=== PATIENT | male | born 1995 | race Caucasian/White ===

== ENCOUNTER 2016-09-12 11:45 | Emergency (ER) | payer OTHER ==
--- NOTE | 2016-09-12 13:00 | RAD ---
HISTORY: Abdominal trauma, worsening pain COMPARISONS: None TECHNIQUE: Multiple transverse and longitudinal ultrasound images were obtained of the abdomen using grayscale, color Doppler, and spectral Doppler imaging. FINDINGS: LIVER: The liver is normal in shape, size, contour, and echogenicity. There are no focal parenchymal masses. There is normal hepatopedal flow of the portal vein on Doppler imaging. BILIARY TREE: There is no intrahepatic or extrahepatic biliary dilatation. The common duct measures 0.3 cm. GALLBLADDER: The gallbladder is well-visualized. There is no cholelithiasis, gallbladder wall thickening, pericholecystic fluid, or sonographic Kuhn sign. PANCREAS: The pancreas is obscured by overlying bowel gas. SPLEEN: The spleen is normal in shape, size, contour, and echotexture. The spleen measures 10.4 x 3.2 x 4.2 cm. RIGHT KIDNEY: The right kidney is normal in shape, size, contour, and echogenicity. There is no hydronephrosis or nephrolithiasis. The right kidney measures 10.8 x 3.6 x 5.7 cm. LEFT KIDNEY: The left kidney is normal in shape, size, contour, and echogenicity. There is no hydronephrosis or nephrolithiasis. The left kidney measures 10.8 x 5.2 x 5.1 cm. AORTA AND IVC: The aorta and IVC are unremarkable. FLUID: There are no pleural effusions. There is no free fluid within the hepatorenal recess. OTHER FINDINGS: None. IMPRESSION: NO ACUTE SONOGRAPHIC PATHOLOGY OF THE VISUALIZED PORTION OF THE ABDOMEN.
[2016-09-12 15:53] LABS: Hematocrit 45 % (42-52); Hemoglobin 15.3 g/dl (14.0-18.0); Mean Corpuscular HGB Conc 34 g/dl (31-36); Mean Corpuscular Hemoglobin 29 pg (27-31); Mean Corpuscular Volume 85 fL (80-94); Mean Platelet Volume 9 um3 (7.4-10.4); Red Blood Count 5.23 10^6/ul (4.0-5.4); Red Cell Distribution Width 13 % (10.5-15); White Blood Count 8.6 10^3/ul (3.5-10.8)
[2016-09-12 16:19] LABS: Calcium 9.8 mg/dL (8.6-10.3); EGFR Non-African American 85.5 (>60); Globulin 2.9 g/dL (2-4); Total Bilirubin 0.8 mg/dL (0.2-1.0); Total Protein 7.9 g/dL (6.4-8.9)
[2016-09-12] MEDS ORDERED: Iohexol 300* (CONTRAST) 10 ML SDV IV ONE (16:30)
--- NOTE | 2016-09-12 16:52 | ED ---
Abdominal Pain/Male - HPI Summary HPI Summary: Pt here w/ 1 week h/o LUQ ab pain s/p blunt trauma with a pole vaulting pole. Monday was practiving and pole slipped - struck him in the ab. He reports this has happened before and he didn't think anything of it however has had progressively worse pain since. Tried to compete 4 days later (took advil) but after landing 2 jumps, he withdrew from competition as pain was too severe. He' s been following with his AT at where he attends college. Came today as there 's concern something more serious could be going on inside. Denies N/V/D - eating well w/o pain or difficulty. Urinating well also. Pain is worse in the morning when he wakes up and tries to take deep breath, stretch his ab etc. No trouble breathing or rib pain. - History of Current Complaint Chief Complaint: EDAbdPain Stated Complaint: ABD PAIN / SENT FROM [facility] Time Seen by Provider: 09/12/16 13:21 Hx Obtained From: Patient Pain Intensity: 5 PMH/Surg Hx/FS Hx/Imm Hx Previously Healthy: Yes Endocrine/Hematology History: Denies: Hx Anticoagulant Therapy, Hx Blood Disorders, Hx Diabetes, Hx Unexplained Bleeding Cardiovascular History: Denies: Hx Hypertension History: Denies: Hx Renal Disease Infectious Disease History: Yes Infectious Disease History: Denies: Traveled Outside the [place] in Last 30 Days - Family History Known Family History: Positive: None - Social History Occupation: Student Lives: With Family - roommate Alcohol Use: None Hx Substance Use: No Substance Use Type: Reports: None Hx Tobacco Use: No Smoking Status (MU): Never Smoked Tobacco Review of Systems Constitutional: Negative Negative: Chest Pain Negative: Shortness Of Breath, Cough Gastrointestinal: Other - see HPI Positive: no symptoms reported Musculoskeletal: Other Negative: Bruising, Other - redness over affected area Neurological: Negative Psychological: Normal All Other Systems Reviewed And Are Negative: Yes Physical Exam Triage Information Reviewed: Yes Vital Signs On Initial Exam: Initial Vitals Temp Pulse Resp BP Pulse Ox 98.6 F 73 17 152/73 100 09/12/16 11:55 09/12/16 11:55 09/12/16 11:55 09/12/16 11:55 09/12/16 11:55 Vital Signs Reviewed: Yes Appearance: Positive: Well-Appearing, No Pain Distress, Well-Nourished Skin: Positive: Warm, Dry - no erythema, no ecchymosis over LUQ (area of injury) Head/Face: Positive: Normal Head/Face Inspection Eyes: Positive: Normal, EOMI, Conjunctiva Clear - anicteric ENT: Positive: Hearing grossly normal, Pharynx normal - mucosa moist Neck: Positive: Supple, Nontender Respiratory/Lung Sounds: Positive: Clear to Auscultation, Breath Sounds Present , Other - breathing well - speaking full sentences w/o difficulty - appears relaxed. Negative: Rales, Rhonchi, Subcutaneous Emphysema, Stridor, Tracheal Deviation, Wheezes Cardiovascular: Positive: Normal, RRR, S1, S2 Abdomen Description: Positive: Soft - LUQ w/ mild TTP - no rebounding. Negative : No Organomegaly, CVA Tenderness (R), CVA Tenderness (L), Distended, Hernia @, Pulsatile Mass, Splenomegaly Bowel Sounds: Positive: Present Musculoskeletal: Positive: Strength/ROM Intact - pt appears to have discomfort with sitting upright from lying supine Neurological: Positive: Normal, Sensory/Motor Intact, Alert, Oriented to Person Place, Time, CN Intact II-III Psychiatric: Positive: Normal Diagnostics - Vital Signs Vital Signs Temp Pulse Resp BP Pulse Ox 09/12/16 15:00 58 100 09/12/16 14:55 67 100 09/12/16 13:14 98.6 F 62 16 131/75 100 09/12/16 11:55 98.6 F 73 17 152/73 100 - Laboratory Lab Results: Lab Results 09/12/16 09/12/16 09/12/16 Range/Units 15:35 15:35 15:35 WBC 8.6 (3.5-10.8) 10^3/ul RBC 5.23 (4.0-5.4) 10^6/ul Hgb 15.3 (14.0-18.0) g/dl Hct 45 (42-52) % MCV 85 (80-94) fL MCH 29 (27-31) pg MCHC 34 (31-36) g/dl RDW 13 (10.5-15) % Plt Count 287 (150-450) 10^3/ul MPV 9 (7.4-10.4) um3 Neut % (Auto) 63.4 (38-83) % Lymph % (Auto) 29.3 (25-47) % [place] % (Auto) 5.5 (1-9) % Eos % (Auto) 1.0 (0-6) % Baso % (Auto) 0.8 (0-2) % Absolute Neuts (auto) 5.5 (1.5-7.7) 10^3/ul Absolute Lymphs (auto) 2.5 (1.0-4.8) 10^3/ul Absolute Monos (auto) 0.5 (0-0.8) 10^3/ul Absolute Eos (auto) 0.1 (0-0.6) 10^3/ul Absolute Basos (auto) 0.1 (0-0.2) 10^3/ul Absolute Nucleated RBC 0 10^3/ul Nucleated RBC % 0 INR (Anticoag Therapy) 1.04 (0.89-1.11) APTT 32.8 (26.0-36.3) seconds Sodium 137 (133-145) mmol/L Potassium 4.0 (3.5-5.0) mmol/L Chloride 105 (101-111) mmol/L Carbon Dioxide 29 (22-32) mmol/L Anion Gap 3 (2-11) mmol/L BUN 13 (6-24) mg/dL Creatinine 1.08 (0.67-1.17) mg/dL Est GFR ( Amer) 110.0 (>60) Est GFR (Non-Af Amer) 85.5 (>60) BUN/Creatinine Ratio 12.0 (8-20) Glucose 88 (70-100) mg/dL Calcium 9.8 (8.6-10.3) mg/dL Total Bilirubin 0.80 (0.2-1.0) mg/dL AST 17 (13-39) U/L ALT 10 (7-52) U/L Alkaline Phosphatase 69 (34-104) U/L Total Protein 7.9 (6.4-8.9) g/dL Albumin 5.0 (3.2-5.2) g/dL Globulin 2.9 (2-4) g/dL Albumin/Globulin Ratio 1.7 (1-3) Result Diagrams: 09/12/16 15:35 09/12/16 15:35 Lab Statement: Any lab studies that have been ordered have been reviewed, and results considered in the medical decision making process. Abdominal Pain Fem Course/Dx - Course Course Of Treatment: Pt presents w/ 1 week h/o blunt ab trauma to LUQ of ab wall w/ pole vaulting pole. Pain is not improving so came for eval - inital U/S is w/o organ laceration as well as hemorrhage. Labs have been drawn and are WNL. CT scan pending for injuries poorly identified on U/S (ie. duodenal hematoma, pancreatic injury, retroperitoneal injury, hemorrhage). Pt stable. Signed out to Em Crews PA-c @ 16:58 - Diagnoses Provider Diagnoses: Blunt trauma to abdomen Discharge - Discharge Plan Condition: Stable Disposition: OTHER Discharge Disposition Comment: signed out to Em Crews PA-C
--- NOTE | 2016-09-12 17:04 | RAD ---
INDICATION: Abdominal injury 6 days ago. Left upper quadrant pain. . Negative complete abdominal sonogram July 12, 2017 COMPARISON: Complete abdominal sonogram September 12, 2016 TECHNIQUE: Axial source images were obtained from the hemidiaphragms to the symphysis pubis following administration of oral and intravenous contrast. 100 mL Omnipaque 300 was utilized. Coronal and sagittal reconstructed images were acquired. Lung bases: The lung bases are clear. Liver: The liver is normal in size. There are no masses. There is no ductal dilatation. Gallbladder: There are no calcified gallstones. There is no evidence of wall thickening or pericholecystic fluid. Spleen: The spleen is normal in size. There are no masses. Pancreas: There is no focal pancreatic mass or ductal dilatation. Adrenal glands: There is no evidence of adrenal mass. Kidneys: The kidneys are normal in size and position. There are prompt nephrograms and there is prompt excretion bilaterally. There are no renal parenchymal masses. There is no evidence of nephrolithiasis. Adenopathy: There is no evidence of adenopathy by size criteria. Fluid collections: There are no free or localized fluid collections. Vessels:There are no significant atherosclerotic changes involving the aorta. There is no focal aneurysm. The iliac vessels are normal in caliber. The IVC appears normal. GI tract: Evaluation GI tract is limited as there is no oral contrast. The upper and lower GI tract is grossly normal. The appendix appears normal. Pelvic organs: The prostate and seminal vesicles appear normal Bladder: There are no bladder masses. Abdominal and pelvic soft tissues: The extraperitoneal abdominal and pelvic soft tissues appear normal.. Osseous structures: There are no acute osseous findings. Other: None IMPRESSION: NO ACUTE CT FINDINGS.
--- NOTE | 2016-09-12 17:17 | ED ---
Progress - Progress Note Progress Note: 21 male sign-off from Paris Ferrer PA-C. Patient came in with complaints of abdominal pain after having blunt trauma with a pole vaulting stick into his abdomen approximately one week ago that has not seemed to go away. A full work- up was completed by Paris Ferrer with no significant findings. US was ordered and normal followed by a CT which also did not find any acute illness or abnormalities. Patient was instructed by both me and Paris Ferrer of worsening signs and symptoms (vomiting, fever, increasing pain, blood in stool etc) to be aware of and to seek medical attention immediately if any of these occur. Told to follow-up with [facility] or his primary care doctor when he is home from college. Pt is stable. Told to take OTC pain relievers as needed for pain and inflammation. Refrain from physical activity for the next 5 days and until cleared by [facility]. Told to use pain as his guide as this muscular strain/contusion make take a few weeks to heal. Re-Evaluation - Re-Evaluation First Eval Re-Evaluation Time: 17:29 Change: Improved Comment: patient states he is feeling fine and is stable. Course/Dx - Course Course Of Treatment: Pt presents w/ 1 week h/o blunt ab trauma to LUQ of ab wall w/ pole vaulting pole. Pain is not improving so came for eval - inital U/S is w/o organ laceration as well as hemorrhage. Labs have been drawn and are WNL. CT scan pending for injuries poorly identified on U/S (ie. duodenal hematoma, pancreatic injury, retroperitoneal injury, hemorrhage). Pt stable. Signed out to Em Crews PA-c @ 16:58 - Diagnoses Provider Diagnoses: Blunt trauma to abdomen, Strain of abdominal muscle, Contusion - Provider Notifications Discussed Care Of Patient With: Paris Ferrer PA-C
[2016-09-12 17:51] VITALS: BP 120/73
== END 2016-09-12 17:51 | disposition home or self-care (01) ==
LOC: ED 11:45
DX: S30.1XXD Contusion of abdominal wall, subsequent encounter (principal); W22.8XXD Striking against or struck by other objects, subsequent encounter; S39.011D Strain of muscle, fascia and tendon of abdomen, subsequent encounter
CPT/HCPCS: 36415; 74177; 76700; 80053; 85025; 85610; 85730; 99283; Q9967